=== PATIENT | male | born 1950 | race American Indian/Alaskan Native ===

== ENCOUNTER 2021-12-30 22:45 | Emergency (ER) | payer MEDICARE ==
[2021-12-31] MEDS ORDERED: IBUPROFEN 600 MG TAB PO ONE (01:33)
[2021-12-31] MEDS ORDERED: ACETAMINOPHEN 500 MG TAB PO ONE (01:33)
--- NOTE | 2021-12-31 02:07 | XRay Report ---
LUMBOSACRAL SPINE, 3 VIEWS INDICATION / CLINICAL INFORMATION: Pain - fall. COMPARISON: None available. FINDINGS: Vertebral body heights and disc spaces are fairly well maintained. Posterior alignment is normal. Mod erate diffuse spondylytic change noted throughout the spine. Diffuse facet degenerative change presen t as well. No evidence for acute fracture. IMPRESSION: No fracture or traumatic malalignment noted. Signer Name: Perla De Guzman MD Signed: 12/31/2021 2:02 AM Workstation Name: [id number]
--- NOTE | 2021-12-31 02:11 | XRay Report ---
BILATERAL ELBOW, 7 VIEWS INDICATION / CLINICAL INFORMATION: Pain - fall. COMPARISON: None available. FINDINGS: Left elbow: Olecranon spur. Moderate degenerative changes present throughout the elbow joint. No acut e fracture or dislocation noted. No hemarthrosis appreciated. Right elbow: Severe degenerative changes present throughout the right elbow. No fracture, dislocation , or hemarthrosis noted. Prominent olecranon spur noted. There is fullness in the region of the olecr anon bursa, possibly representing soft tissue hematoma. IMPRESSION: 1. No acute fracture or dislocation of either elbow. 2. Prominent soft tissue in the region of the right olecranon bursa possibly representing small hemat francois or bursitis. 3. Prominent degenerative change bilaterally. 4. Bilateral olecranon spurs. Signer Name: Prela De Guzman MD Signed: 12/31/2021 2:06 AM Workstation Name: [email or web address]
--- NOTE | 2021-12-31 02:41 | Cat Scan Report ---
CT head/brain wo con INDICATION / CLINICAL INFORMATION: Pt had a fall, now with head pain. TECHNIQUE: Axial CT imaging of brain was obtained without contrast. Coronal and sagittal reformatted imaging obt ained and reviewed. All CT scans at this location are performed using CT dose reduction for ALARA by means of automated exposure control. COMPARISON: None available. FINDINGS: No intracranial hemorrhage, mass, or midline shift. No extra-axial fluid collection or suggestion of acute territorial infarction. Ventricular system and basilar cisterns are unremarkable. Bilateral verna cifications within the basal ganglia are present. Age-appropriate cerebral/cerebellar atrophy present . Dense calcification of the right vertebral artery and distal portion of right intracranial carotid artery. Visualized paranasal sinuses and mastoid air cells are well aerated and clear. No calvarial fracture identified. IMPRESSION: 1. No acute intracranial abnormality. Signer Name: Perla De Guzman MD Signed: 12/31/2021 2:37 AM Workstation Name: [id number]
--- NOTE | 2021-12-31 02:45 | Cat Scan Report ---
CT cervical spine wo con INDICATION / CLINICAL INFORMATION: Pt had a fall, now with neck pain. TECHNIQUE: Axial CT imaging of cervical spine was obtained without contrast. Coronal and sagittal reformatted im aging obtained and reviewed. All CT scans at this location are performed using CT dose reduction for ALARA by means of automated exposure control. COMPARISON: None available. FINDINGS: No cervical spine fracture. Alignment is normal. There is diffuse prominent spondylytic change throug hout the cervical spine. Large bridging anterior osteophyte noted at C3-C4. Diffuse uncinate hypertro phic changes with diffuse narrowing of the neural foramina bilaterally, multiple levels. Mild multile isabella degenerative disc disease. Paravertebral soft tissues are grossly unremarkable. Visualized lung apices are clear. IMPRESSION: 1. No cervical spine fracture or traumatic malalignment. 2. Prominent diffuse spondylytic change. Signer Name: Perla De Guzman MD Signed: 12/31/2021 2:41 AM Workstation Name: [id number]
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
[2021-12-31 04:19] VITALS: BP 148/90
== END 2021-12-31 04:18 | disposition home or self-care (01) ==
LOC: ED 22:45
DX: S50.11XA Contusion of right forearm, initial encounter (principal); S50.12XA Contusion of left forearm, initial encounter; M62.89 Other specified disorders of muscle; M54.50 Low back pain, unspecified; R51.9 Headache, unspecified; X58.XXXA Exposure to other specified factors, initial encounter; Y93.89 Activity, other specified; Y92.89 Other specified places as the place of occurrence of the external cause; Y99.8 Other external cause status; I10 Essential (primary) hypertension
CPT/HCPCS: 70450; 72100; 72125; 99284